=== PATIENT | male | born 1970 | race Caucasian/White ===

== ENCOUNTER → 2018-11-26 | Day surgery (SDC) | payer BC ==
--- NOTE | 2018-11-22 13:45 | Diagnostic Imaging Report ---
EXAMINATION: CHEST 2 VIEWS INDICATION: Pre-operative COMPARISON: None FINDINGS: LINES/TUBES:None LUNGS:The lungs are mildly hyper inflated. No focal consolidation or pulmonary edema. PLEURA:No pleural effusion or pneumothorax. MEDIASTINUM:The cardiomediastinal silhouette appears normal in size and shape. BONES/SOFT TISSUES:No acute osseous injury. Multiple old healed right-sided rib fractures. ABDOMEN:No free air under the diaphragm. IMPRESSION: Mildly hyperinflated lungs. No focal pneumonia or pulmonary edema. Signed by: Ana Murillo MD on 11/22/2018 1:42 PM
[~2018-11-26] MED LIST: ACETAMINOPHEN 1000 MG/100 ML IV ONE; DEXAMETHASONE SOD PHOS INJ 4 MG/ML VIAL ONE; EPINEPHRINE HCL 1:1000 1ML 1 MG/ML AMP ONE; FENOFIBRATE145 MG PO; FENTANYL CITRATE/PF 100MCG/2 ML INJ ONE; GLYCOPYRROLATE INJ 1MG/ 5 ML SYR ONE; KETOROLAC TROMETHAMINE 30 MG/ML VIAL ONE; LIDOCAINE 1% W/EPINEPHRINE 20 ML VIAL ONE; LIDOCAINE HCL 2% LOCAL INJ 5 ML SDV VIAL INJ ONE; LISINOPRIL10 MG PO; LORAZEPAM1 MG PO; MIDAZOLAM HCL 2 MG/2 ML VIAL ONE; NEOSTIGMINE 5 MG/5ML SYR ONE; ONDANSETRON HCL INJ 2MG/ML 2ML 2 MG/ML VIAL ONE; PROPOFOL IV EMULSION 10 MG/ML 20 ML VIAL ONE; ROCURONIUM BROMIDE 10 MG/ML 5ML VIAL ONE; SEVOFLURANE INHAL SOLN 250 ML PEN BTL ONE
--- OUTSIDE RECORDS SUMMARY | 2018-11-26 05:55 | XMS REPORT ---
[facility] Address Unknown Phone Unavailable Care Team Providers Care Arborist Representative Name Role Phone Maryellen WYATT Unavailable Unavailable Problems This patient has no known problems. Allergies, Adverse Reactions, Alerts This patient has no known allergies or adverse reactions. Medications This patient has no known medications. Results Test Description Test Time Test Comments Text Results Atomic Results Result Comments CHEST 2 VIEWS 2018-11-22 13:40:00 [place] [address] Patient Name: EDWIN BASHIR MR #: [id number] : 1970 Age/Sex: 48/M Req #: [id number] [facility] Physician: Ordered by: EDU WYATT MD Report #: [id number] Location: OR Room/Bed: Procedure: [id number] DX/CHEST 2 VIEWS Exam Date: 11/22/18 Exam Time: 1220 REPORT STATUS: Signed EXAMINATION: CHEST 2 VIEWS INDICATION: Pre-operative COMPARISON: None FINDINGS: LINES/TUBES:None LUNGS:The lungs are mildly hyper inflated. No focal consolidation or pulmonary edema. PLEURA:No pleural effusion or pneumothorax. MEDIASTINUM:The cardiomediastinal silhouette appears normal in size and shape. BONES/SOFT TISSUES:No acute osseous injury. Multiple old healed right-sided rib fractures. ABDOMEN:No free air under the diaphragm. IMPRESSION: Mildly hyperinflated lungs. No focal pneumonia or pulmonary edema. Signed by: Kenzie Murillo MD on 11/22/2018 1:42 PM Dictated By: KENZIE MURILLO MD 1342 Transcribed By: HARJINDER on 11/22/18 1342 COPY TO: EDU WYATT MD
[2018-11-26 10:27] VITALS: BP 102/66
--- NOTE | 2018-11-26 13:05 | Operative Report ---
DATE OF PROCEDURE: 11/26/2018 SURGEON: Bridger Sarkar MD CHIEF COMPLAINT: Chronic sinusitis and nasal obstruction. POSTOPERATIVE DIAGNOSES: Chronic sinusitis and nasal obstruction. OPERATIVE PROCEDURES: Bilateral anterior and posterior ethmoidectomy, bilateral maxillary sinus antrostomy, bilateral resection of tissue in maxillary antrum, bilateral sphenoidectomy, bilateral kevin bullosa resection, septoplasty, and biopsy of the midline nasopharynx. ANESTHESIA: [facility]esthesiology Group. INDICATIONS: This 48 years old male has history of nasal obstruction. He has postnasal drip discharge from his nose. The patient complained of frontal maxillary pain. His condition has been treated with topical nasal steroid, decongestant, and antibiotics with no improvement over the past 6 to 8 weeks. On examination, he was noted to have edema in nasal septum anteriorly on the left side about 40%. CT scan of paranasal sinuses showed the patient has ethmoid sinus involving maxillary sinus involvement and confirmed deviated nasal septum. The sphenoid sinus on both sides was also infected. It was decided endoscopic sinus surgery, septoplasty, and other necessary procedure will be beneficial for him. DESCRIPTION OF PROCEDURE: The patient was taken to the operating room, put under general anesthesia, and endotracheally intubated. Nose was injected with 1% Xylocaine with 1:100,000 epinephrine for hemostasis. Epinephrine-soaked pledget was inserted into the nose. The left paranasal sinuses were approached first. Middle turbinate was medialized. The bulla ethmoidalis was entered, anterior and posterior ethmoid sinuses were dissected in a systematic fashion. Inflamed tissue was noted at both anterior and posterior ethmoid sinus area. The clinical appearance of the sinuses was much worse than the CAT scan was showing. Care was taken during the dissection to ascertain, although it was not entered. The sphenoid sinus was entered through the natural ostium. This was enlarged using a microshaver. Inflamed tissue in the sphenoid sinus was dissected using a microshaver. Using a curved probe, the natural ostium of maxillary sinus was entered. This was enlarged anteriorly and posteriorly using a backbiter and Thru-Cut forceps respectively. Inflamed tissue in the maxillary antrum was dissected using the microshaver. The lateral portion of the middle turbinate was dissected by resecting the kevin bullosa. The right paranasal sinuses were approached. Middle turbinate was medialized. The anterior and posterior ethmoid sinuses were dissected in a systematic fashion. Inflamed tissue was noted in both anterior and posterior ethmoid sinus area. Again, the amount of inflammation and chronic changes were worse clinically than on the CAT scan. Care was taken during dissection to ascertain, although it was not entered. Using the microshaver, the lateral portion of the middle turbinate was dissected by resecting the kevin bullosa. The sphenoid sinus was entered through the natural ostium. This was enlarged using a microshaver. Inflamed tissue in the sphenoid sinus was dissected using a microshaver. Using a curved probe, the natural ostium of maxillary sinus was entered. This was enlarged anteriorly and posteriorly using a backbiter and Thru-Cut forceps respectively. Inflamed tissue in the maxillary antrum was dissected using the upbiting Thru-Cut forceps. The septoplasty was performed. A hemitransfixion incision was done on the left side. Mucoperichondrial flap was elevated on the left. Bony cartilaginous junction was encountered and this was . Perpendicular plate of the ethmoid was transected. This was removed along with the vomer. The septal spur cartilaginous portion was resected using the [place] elevator and bony portion using a 4 mm straight chisel. Quadrangular cartilage after being freed from posterior inferior constraint was able spring back in the midline. The hemitransfixion incision was closed using 4-0 chromic suture in an interrupted fashion. Septal whipstitch was done using 4-0 plain gut suture to reapproximate the mucoperichondrial flap and prevent septal hematoma formation. NasoPore was inserted in the sinus cavities on either side. This was done to prevent synechiae formation and for hemostasis. On examination of the nasopharynx, increased lymphoid tissue was noted in the nasopharynx. This was biopsied using the Jaya-Cut forceps and sent for permanent section. The patient tolerated the above procedures well with estimated blood loss about 20 mL to 30 mL. He was given 20 mg of Decadron intraoperatively. The patient was able to be transferred to recovery room in stable condition. MD SHEFALI Hart/HAYDEE /[id number]
--- NOTE | 2018-11-28 10:50 | Pre Op History & Physical ---
DATE OF SURGERY: November 26, 2018 CHIEF COMPLAINT: Chronic sinusitis and nasal obstruction. HISTORY OF PRESENT ILLNESS: This 48-year-old male has a history of nasal obstruction. The patient has postnasal drip discharge from his nose. He has loud snoring. The patient has no previous injury to the nose. He had normal sense of smell. He has no epistaxis. He does have postnasal drip. The patient denies any headaches. His condition has been treated with multiple antibiotics including Augmentin with no improvement of the condition. A CT scan of paranasal sinuses done before surgery showed the patient has chronic sinusitis involving the ethmoid sinuses, sphenoid sinus, maxillary sinus involvement, and also showed deviated nasal septum. REVIEW OF SYSTEMS: System review showed no recent cardiovascular, respiratory, or GI problem. PAST MEDICAL HISTORY: The patient has no significant medical problem. PAST SURGICAL HISTORY: The patient has previous tonsillectomy and appendectomy. ALLERGIES: HE HAS NO KNOWN ALLERGY TO MEDICATION. MEDICATIONS: He is on lorazepam. SOCIAL HISTORY: He stopped smoking in July of 2014. He drinks 6-12 beers per day. FAMILY HISTORY: Noncontributory. PHYSICAL EXAMINATION: VITAL SIGNS: On examination, the patient's vital signs were within normal limits. HEENT: Ear exam showed normal tympanic membranes bilaterally. Nasal exam show deviated nasal septum on the left side about 40% with a spur on the right about 20%. Oropharynx and oral cavity show no obvious abnormality. NECK: No lymph node or thyroid palpable. CHEST: Showed good air entry bilaterally. CARDIOVASCULAR: Showed S1, S2. No murmur noted. ASSESSMENT AND PLAN: Mr. Polo has chronic sinusitis, nasal obstruction, which has been resistant to conservative therapy. Suggestion treatment is endoscopic sinus surgery, septoplasty, restructuring inferior turbinate, and other necessary procedure. The complication of procedure includes, but not limited to bleeding, infection, CSF leak, blindness, double vision, meningitis, septal perforation, septal hematoma, persistent nasal obstruction, persistent nasal crusting, nasal deformity, and recurrence of the sinus problem. The alternative will be continue observation, continue antibiotic therapy, topical nasal steroid therapy, systemic steroid therapy, and decongestant. I have emphasized to the patient that the opening of his nasal airway may or may not change his snoring. The patient and his have elected to undergo the surgical procedure. MD SHEFALI Hart/HAYDEE /[id number] cc: Reinier Houston
== END | disposition home or self-care (01) ==
LOC: OR 05:49
PROVIDERS: ATTEND Otolaryngology Otolaryngology/Facial Plastic Surgery
DX: J32.0 Chronic maxillary sinusitis (principal); J34.89 Other specified disorders of nose and nasal sinuses; J32.2 Chronic ethmoidal sinusitis; J32.3 Chronic sphenoidal sinusitis; J34.2 Deviated nasal septum; Z01.810 Encounter for preprocedural cardiovascular examination; Z01.818 Encounter for other preprocedural examination
CPT/HCPCS: 30520; 31240; 31259; 31267; 71046; 88300; 88305; 93005; J0131; J0171; J1100; J1885; J2001; J2250; J2405; J2704; J3010; J3490; 88304